=== PATIENT | female | born 1985 | race African-American/Black ===

== ENCOUNTER 2017-07-27 01:19 | Emergency (ER) | payer OTHER ==
[~2017-07-27] VITALS: Ht 165.1 cm; Wt 68.0 kg
--- NOTE | ~2017-07-27 | EKG ---
[facility] [place] [address] ELECTROCARDIOGRAM REPORT Name: PRATIMA BEAN Room #: DEP SABRINA Castaneda#: [id number] Admission: 07/27/17 Attend Phys: Discharge: 07/27/17 Date of : 85 Report #: [id number] THIS REPORT FOR: //name// [facility] ED Test Date: 2017-07-27 Test Time: 01:24:47 Pat Name: PRATIMA BEAN Department: Room: Gender: F Waterproofer: YANNI : 1985 Requested By: Marguerite Can Order Number: [id number] MD: Jovani Trejo Measurements Intervals Scott Rate: 87 P: 34 IL: 169 QRS: -9 QRSD: 85 T: 22 QT: 411 QTc: 495 Interpretive Statements Sinus rhythm LVH by voltage Anterior Q waves, possibly due to LVH Prolonged QT interval No previous ECG available for comparison Electronically Signed On 07-27-2017 8:25:47 [employer] by Jovani Trejo [email or web address] <ELECTRONICALLY SIGNED> By: Jovani Trejo MD, [facility] 07/27/17 0825 [id number] Jovani Trejo MD, FACC /EPI
[2017-07-27 01:40] LABS: HEMATOCRIT 40.9 % (37.0-47.0); HEMOGLOBIN 13.6 gm/dL (12.0-15.0); MCH 28.7 pg (26.0-34.0); MCHC 33.2 g/dL (28.0-37.0); MCV 86.5 fL (80.0-100.0); RBC 4.72 mil/uL (4.20-5.00); RDW 13.2 % (10.5-14.5); WBC 9.5 thou/uL (4.0-11.0)
[2017-07-27 01:48] LABS: CALCIUM 9.3 mg/dL (8.5-10.1); CREATININE 0.9 mg/dL (0.6-1.0); POTASSIUM 3.3 mmol/L (3.5-5.1)
[2017-07-27 03:21] LABS: AMP/METHAMP Negative (Negative); BARBITURATES Negative (Negative); BENZODIAZEPINES Negative (Negative); COCAINE POSITIVE (Negative); METHADONE Negative (Negative); OPIATES Negative (Negative); PCP POSITIVE (Negative); THC Negative (Negative)
[2017-07-27 07:03] VITALS: BP 149/98
== END 2017-07-27 06:46 | disposition home or self-care (01) ==
LOC: ER 01:19
PROVIDERS: Emergency Medicine
DX: F16.10 Hallucinogen abuse, uncomplicated (principal); F14.10 Cocaine abuse, uncomplicated